=== PATIENT | female | born 1950 | race Caucasian/White ===

== ENCOUNTER 2020-10-10 11:43 | Emergency (ER) | payer OTHER ==
[~2020-10-10] VITALS: Ht 152.4 cm; Wt 6.9 kg
[2020-10-10] MEDS ORDERED: NAPROXEN 250 MG TABLET PO ONE (12:15)
[2020-10-10 13:10] VITALS: BP 131/57
== END 2020-10-10 14:08 | disposition home or self-care (01) ==
LOC: EMS 11:43
DX: M17.12 Unilateral primary osteoarthritis, left knee (principal); M25.762 Osteophyte, left knee; E11.9 Type 2 diabetes mellitus without complications; E78.00 Pure hypercholesterolemia, unspecified; I10 Essential (primary) hypertension
CPT/HCPCS: 99283